=== PATIENT | female | born 1935 | race Caucasian/White ===

== ENCOUNTER 2018-06-25 07:13 | Emergency (ER) | payer OTHER ==
[~2018-06-25] VITALS: Ht 162.6 cm; Wt 78.0 kg
[~2018-06-25 07:13] MED LIST: Ascorbic Acid,Ester- PO; Aspirin E.C. PO; Colace PO; Dulcolax PO; Folvite PO; LO-DOSE ASPIRIN81 M1 PO; LOW DOSE ASPIRI81 M1 PO; Lovenox SC; Miralax, Glycolax PO; Norvasc PO; Oscal 500 w/Vitamin PO; PRAVACHOL10 MG PO; PRAVACHOL40 MG PO; PRAVASTATIN SOD40 MG PO; Pravachol PO; Protonix PO; Senokot S,Pericolace PO; TYLENOL REGULA325 MG PO; Theragran PO; Ultram PO; VITAMIN E400 UNIT PO; Vitamin-E PO
[2018-06-25 07:23] VITALS: BP 121/101
[2018-06-25] MEDS ORDERED: ATARAX,VISTARIL25 MG PO (07:32)
[2018-06-25] MEDS ORDERED: PREDNISONE20 MG PO (07:32)
[2018-06-25] MEDS ORDERED: CLARITIN,ALAVAR10 MG PO (07:32)
== END 2018-06-25 07:51 | disposition home or self-care (01) ==
LOC: EME 07:13
DX: T63.441A Toxic effect of venom of bees, accidental (unintentional), initial encounter (principal); L29.9 Pruritus, unspecified; I10 Essential (primary) hypertension; E78.5 Hyperlipidemia, unspecified
CPT/HCPCS: 99281; 99283; J7512